=== PATIENT | female | born 1995 | race Two or more races ===

== ENCOUNTER 2018-01-14 20:56 | Emergency (ER) | payer OTHER ==
[~2018-01-14] VITALS: Ht 157.5 cm; Wt 44.5 kg
== END 2018-01-15 04:30 | disposition home or self-care (01) ==
LOC: ER 20:56
DX: O20.8 Other hemorrhage in early pregnancy (principal); Z34.01 Encounter for supervision of normal first pregnancy, first trimester

== ENCOUNTER 2018-01-19 00:38 | Day surgery (SDC) | payer OTHER ==
[~2018-01-19] VITALS: Ht 157.5 cm; Wt 44.9 kg
== END 2018-01-19 16:20 | disposition home or self-care (01) ==
LOC: ER 00:38 → CIR.AMB 07:26
DX: O03.4 Incomplete spontaneous abortion without complication (principal)